=== PATIENT | female | born 1970 | race Caucasian/White ===

== ENCOUNTER 2021-11-24 14:04 | Outpatient (CLI) | payer BC | END 2021-11-24 14:05 | disposition home or self-care (01) | LOC: CSHULT 14:04 | PROVIDERS: ATTEND Otolaryngology Otolaryngic Allergy | DX: E03.9 Hypothyroidism, unspecified (principal) | CPT/HCPCS: 76536 ==

== ENCOUNTER 2023-02-15 08:29 | Outpatient (CLI) | payer BC | END 2023-02-15 08:30 | disposition home or self-care (01) | LOC: CSHMAMMO 08:29 | PROVIDERS: ATTEND Student in an Organized Health Care Education/Training Program | DX: Z12.31 Encounter for screening mammogram for malignant neoplasm of breast (principal) | CPT/HCPCS: 77063; 77067 ==